=== PATIENT | female | born 1990 | race Two or more races ===

== ENCOUNTER 2022-11-24 12:40 | Emergency (ER) | payer BC ==
[~2022-11-24] VITALS: Ht 154.9 cm; Wt 68.0 kg
== END 2022-11-24 14:50 | disposition home or self-care (01) ==
LOC: ER 12:40
DX: J06.9 Acute upper respiratory infection, unspecified (principal); Z88.0 Allergy status to penicillin

== ENCOUNTER 2023-07-02 02:53 | Inpatient (IN) | payer BC ==
[~2023-07-02] VITALS: Ht 154.9 cm; Wt 2.7 kg
== END 2023-07-05 12:46 | disposition home or self-care (01) | DRG 788 ==
LOC: OB/GYN 02:53 → LDR 02:53 → OB/GYN 21:26
PROVIDERS: Obstetrics & Gynecology; Obstetrics & Gynecology Maternal & Fetal Medicine; ADMIT Obstetrics & Gynecology; ATTEND Obstetrics & Gynecology
PROC: 4A1HXCZ Monitoring of Products of Conception, Cardiac Rate, External Approach (ICD-10-PCS; 2023-07-02)
PROC: 10D00Z1 Extraction of Products of Conception, Low, Open Approach (ICD-10-PCS; principal; 2023-07-02 19:00)
DX: O62.1 Secondary uterine inertia (principal); Z3A.38 38 weeks gestation of pregnancy; Z37.0 Single live birth; Z20.822 Contact with and (suspected) exposure to COVID-19